=== PATIENT | male | born 1980 | race Caucasian/White ===

== ENCOUNTER 2019-10-17 16:59 | Emergency (ER) | payer BC ==
[2019-10-17] MEDS ORDERED: Lidocaine 1% 10 ML MDV INJECT ONE (17:19)
--- NOTE | 2019-10-17 17:24 | EDM.PDOC ---
ED HPI GENERAL MEDICAL PROBLEM - General Chief Complaint: Laceration Stated Complaint: FOREHEAD LAC Time Seen by Provider: 10/17/19 17:12 Source of Information: Reports: Patient, RN Notes Reviewed History Limitations: Reports: No Limitations - History of Present Illness INITIAL COMMENTS - FREE TEXT/NARRATIVE: Patient is a 38-year-old male who presents to the ED for the evaluation of a forehead laceration. Patient states he was at practice, and ended up running into another player, this resulted in a 1.5 cm laceration to the proximal aspect of the left eyebrow, and extends into the forehead vertically. Bleeding is under control at this time. Patient is up-to-date with his tetanus vaccination. He states that this occurred at about 1:30 PM today. The wound was cleansed with water and some sanitizing wipes otherwise there is been no Band-Aids or antibiotic ointment put on the wound. He figured he would come to the ER to see if he needed sutures or not. He is denying any loss of consciousness, pain anywhere else, no blurred vision double vision. He denies any other sort of past medical history. Forehead Pain Score (Numeric/FACES): 1 - Related Data Allergies Allergy/AdvReac Type Severity Reaction Status Date / Time beeswax Allergy Swelling Verified 10/17/19 17:12 Home Meds: Home Meds FLUoxetine [PROzac] 20 mg PO DAILY 10/17/19 [History] Past Medical History - Past Health History Medical/Surgical History: Denies Medical/Surgical History Musculoskeletal History: Reports: Other (See Below) Other Musculoskeletal History: L achilles tendon tear - Past Surgical History Musculoskeletal Surgical History: Reports: Other (See Below) (L achilles tendon repair) Social & Family History - Tobacco Use Smoking Status *Q: Never Smoker - Caffeine Use Caffeine Use: Reports: Soda - Recreational Drug Use Recreational Drug Use: No ED ROS GENERAL - Review of Systems Review Of Systems: Comprehensive ROS is negative, except as noted in HPI. ED EXAM, SKIN/RASH Exam: See Below Exam Limited By: No Limitations General Appearance: Alert, WD/WN, No Apparent Distress Eye Exam: Bilateral Eye: EOMI, Normal Inspection, PERRL Ears: Normal External Exam, Normal Canal, Hearing Grossly Normal, Normal TMs Nose: Normal Inspection Throat/Mouth: Normal Inspection, Normal Lips, Normal Teeth, Normal Gums, Normal Oropharynx, Normal Voice, No Airway Compromise Head: Normocephalic, Other (laceration; see skin assessment) Neck: Normal Inspection, Supple, Non-Tender, Full Range of Motion Respiratory/Chest: No Respiratory Distress, Lungs Clear, Normal Breath Sounds, No Accessory Muscle Use, Chest Non-Tender Cardiovascular: Normal Peripheral Pulses, Regular Rate, Rhythm, No Murmur Extremities: Normal Inspection, Normal Capillary Refill Neurological: Alert, Oriented, Normal Cognition, No Motor/Sensory Deficits Psychiatric: Normal Affect, Normal Mood Skin: Warm, Dry, Normal Color, No Rash, Wound/Incision (1.5 cm linear laceration that starts at the proximal left eyebrow and extends vertically to the forehead. This has minimal gaping, and no active bleeding noted.) ED SKIN PROCEDURES - Laceration/Wound Repair Left Medial Proximal Forehead Appearance: Superficial, Linear, Clean Distal NVT: Neuro & Vascular Intact, No Tendon Injury Anesthetic Type: Local Local Anesthesia - Lidocaine (Xylocaine): 1% Plain Local Anesthetic Volume: 2cc Skin Prep: Chlorhexidine (Hibiciens), Saline Exploration/Debridement/Repair: Wound Explored, In a Bloodless Field, Explored to Base, No Foreign Material Found Closed with: Sutures Lac/Wound length In cm: 1.5 Suture Size: 5-0 Suture Type: Prolene, Interrupted, Simple Sterile Dressing Applied: Nurse Tetanus Status Addressed: Yes Complications: No Course - Vital Signs Last Recorded V/S: Last Vital Signs Temp 98.4 F 10/17/19 17:16 Pulse 72 10/17/19 17:16 Resp 20 10/17/19 17:16 BP 127/92 H 10/17/19 17:16 Pulse Ox 100 10/17/19 17:16 - Orders/Labs/Meds Meds: Medications Discontinued Medications Generic Name Dose Route Start Last Admin Trade Name Domq PRN Reason Stop Dose Admin Lidocaine HCl 10 ml 10/17/19 17:19 10/17/19 17:36 Xylocaine 1% INJECT 10/17/19 17:20 10 ml ONETIME ONE Administration Departure - Departure Time of Disposition: 17:25 Disposition: Home, Self-Care 01 Condition: Fair Clinical Impression: Simple laceration of face Qualifiers: Encounter type: initial encounter Qualified Code(s): S01.81XA - Laceration without foreign body of other part of head, initial encounter - Discharge Information *PRESCRIPTION DRUG MONITORING PROGRAM REVIEWED*: No *COPY OF PRESCRIPTION DRUG MONITORING REPORT IN PATIENT KELSEA: No Instructions: Facial Laceration, [id number] Referrals: Arvind Ferguson Jr, MD [Primary Care Provider] - Forms: ED Department Discharge Additional Instructions: You have been evaluated in the ED for your laceration. Sutures will need to stay in for 5-7 days (10/21-10/23) You may return to the ED or any clinic for removal. Please keep this area clean and dry, you may cleanse with regular soap and water. No vigorous scrubbing. Watch out for signs of infection like increased redness, swelling, pain at the laceration site, or if you should develop any fevers or chills. Please return to ED if your symptoms change or worsen. Sepsis Event Note - Evaluation Sepsis Screening Result: No Definite Risk - Focused Exam Vital Signs: Vital Signs Temp Pulse Resp BP Pulse Ox 10/17/19 17:16 98.4 F 72 20 127/92 H 100 Date Exam was Performed: 10/17/19 Time Exam was Performed: 22:20
== END 2019-10-17 18:15 | disposition home or self-care (01) ==
LOC: JD.ED 16:59
DX: S01.81XA Laceration without foreign body of other part of head, initial encounter (principal); Z91.030 Bee allergy status; Z79.899 Other long term (current) drug therapy; W26.9XXA Contact with unspecified sharp object(s), initial encounter
CPT/HCPCS: 12011; 99282; J2001